=== PATIENT | female | born 1960 | race Caucasian/White ===

== ENCOUNTER 2020-01-13 09:19 | Emergency (ER) | payer SELFPAY ==
[2020-01-13] MEDS ORDERED: NA CHLORIDE 0.9% 1,000 ML ONE (09:57)
[2020-01-13 10:08] LABS: Absolute Lymphocytes (CBC) 0.6 K/uL (0.7-4.9); Basophils % 0.5 % (0-1.3); Hematocrit 33.8 % (36.0-45.0); Lymphocytes % 15.3 % (15.3-44.8); MPV 7.6 fL (7.6-11.3)
[2020-01-13 10:18] LABS: Protime INR 1.1
[2020-01-13 10:31] LABS: Albumin 2.7 g/dL (3.4-5.0); Bilirubin Direct 0.2 mg/dL (0-0.2); Bilirubin Total 0.5 mg/dL (0.2-1.0); Potassium 3.2 mmol/L (3.5-5.1); Protein, Total 6.8 g/dL (6.4-8.2)
--- NOTE | 2020-01-13 10:46 | RAD REPORT ---
EXAM DESCRIPTION: CT - Head Brain Wo Cont - 01/13/2020 10:36 am CLINICAL HISTORY: Confused;Declining state Headache, drowsiness COMPARISON: Chest Abdomen Pelvis W Cont dated 01/13/2020; HEPATOBILIARY DUCTAL IMAGING dated 11/09/2009 TECHNIQUE: All CT scans are performed using dose optimization technique as appropriate and may inclu de automated exposure control or mA/KV adjustment according to patient size. FINDINGS: No intracranial hemorrhage, hydrocephalus or extra-axial fluid collection.Subtle areas of diminished density are seen in the posterior subcortical white matter, nonspecific but likely chronic .No areas of brain edema or evidence of midline shift. The paranasal sinuses and mastoids are clear. The calvarium is intact. IMPRESSION: No acute intracranial abnormality. 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 Nonemergent contrast enhanced MRI brain followup assessment could be obtained if clinically tyrone cated for further assessment.
--- NOTE | 2020-01-13 10:58 | RAD REPORT ---
EXAM DESCRIPTION: CT - Chest Abdomen Pelvis W Cont - 01/13/2020 10:36 am CLINICAL HISTORY: Chest and abdomen pain. known metastatic lung cancer, worsening pain, abd and vomit COMPARISON: No comparisons TECHNIQUE: Approximately 100 mL nonionic IV contrast was administered to the patient. All CT scans are performed using dose optimization technique as appropriate and may include automated exposure control or mA/KV adjustment according to patient size. FINDINGS: Emphysematous changes are present throughout the lungs with spiculated right suprahilar so ft tissue mass measuring 27 x 16 mm. Matted soft tissue is seen extending into the right hilum and parks bcarinal space palpable with adenopathy. Mild matted adenopathy is also extends into the prevascular space.No pleural or pericardial effusion. Cholecystectomy. Mild fatty liver. No focal liver lesion is seen. Small hiatal hernia. The spleen is unremarkable. Mild pancreatic atrophy is evident. Bilateral adrenal masses are present on the right m easuring 21 mm and on the left measuring 14 mm, likely related to metastatic disease. Small poorly de fined lesion is seen anterior superior left kidney measuring 12 mm. No hydronephrosis. Moderate stool is present in the colon. Mild nonspecific thickening is seen involving the descending colon and proximal sigmoid colon. No bowel obstruction, free air, free fluid or abscess. The appendix is not identified as a discrete s tructure, however, no secondary findings of appendicitis are identified. No pathologic lymphadenopa thy in the abdomen or pelvis. Soft tissue destructive rib mass is seen affecting the left sixth rib measuring 37 x 24 mm medially d eep to the left breast implant. This is likely metastatic in etiology. IMPRESSION: Irregular right suprahilar malignancy is identified with evidence of matted adenopathy i n the mediastinum and right. Bilateral adrenal metastatic deposits suspected. Bony destructive mass, likely metastatic in etiology, affects the left sixth rib. 12 mm poorly defined lesion anterior superior left kidney may be metastatic or related to a second si te of neoplasia/RCC. Thickening of the descending colon and proximal sigmoid colon suggests possible colitis. Moderate ret ention of stool is seen proximal to this level.
[2020-01-13] MEDS ORDERED: FENTANYL CITR 100 MCG/2 ML ONE (11:16)
--- NOTE | 2020-01-13 11:50 | EKG ---
Test Date: 2020-01-13 Test Time: 09:32:02 Statement Distribution Clerk: TERRIE MEASUREMENT RESULTS: Intervals: Rate: 101 IN: 158 QRSD: 92 QT: 356 QTc: 461 [place]: P: 64 IN: 158 QRS: 9 T: 62 INTERPRETIVE STATEMENTS: Sinus tachycardia Possible Left atrial enlargement Borderline ECG No previous ECG available for comparison Electronically Signed On 01-13-20 11:50:02 CDT by Zack Noonan
[2020-01-13] MEDS ORDERED: ONDANSETRON 4 MG/2 ML VIAL ONE (12:23)
[2020-01-13] MEDS ORDERED: metroNIDAZOLE 500 MG TABLET ONE (12:23)
[2020-01-13] MEDS ORDERED: CIPROFLOXACIN HCL 500 MG TAB ONE (12:23)
--- NOTE | 2020-01-13 12:30 | EDPHYS ---
Physician Documentation [facility] Name: Maci Monae Age: 59 yrs Sex: Female : 1960 Arrival Date: 01/13/2020 Time: 09:22 Bed 6 Private MD: out of town, doctor ED Physician Nii Christensen HPI: 01/12 09:46 This 59 yrs old Female presents to ER via Wheelchair with complaints of Chest rn Pain, confusion, dehydration. 09:46 The patient or guardian reports chest pain that is located primarily in the left rn lateral anterior chest. Onset: chronic. The pain does not radiate. Associated signs and symptoms: Pertinent positives: abdominal pain, lightheadedness, nausea, vomiting. The chest pain is described as sharp, stabbing. Severity of pain: At its worst the pain was moderate in the emergency department the pain is unchanged. The patient has experienced similar episodes in the past, chronically. Reports known stage 4 lung cancer, with mets to breast/bone, is visiting from [facility], daughter brought her in because of worsening pain despite morphine, 3 days of confusion, and atleast 1 week of decreased appetite with vomiting/diarrhea only when attempting PO intake. + increase weight loss. . Historical: - Allergies: 09:39 Codeine; hb - PMHx: 09:39 Lung CA - Stage 4; hb - Immunization history:: Adult Immunizations up to date. - Social history:: Smoking status: Patient denies any tobacco usage or history of. - Family history:: not pertinent. - Hospitalizations: : No recent hospitalization is reported. ROS: 09:46 Constitutional: Negative for fever, chills, and weight loss, Eyes: Negative for injury, rn pain, redness, and discharge, Cardiovascular: Negative for palpitations, and edema, Respiratory: + sob and pleuritic chest pain Abdomen/GI: Negative for constipation, : + dark urine MS/Extremity: Negative for injury and deformity, Skin: Negative for injury, rash, and discoloration, Neuro: Negative for headache, numbness, tingling, and seizure. Exam: 09:45 ECG was reviewed by the Attending Physician. rn 09:46 Constitutional: Thin, cachectic female, no acute distress Head/Face: Normocephalic, rn atraumatic. ENT: dry MM Cardiovascular: Tachycardic, regular Respiratory: Diminished bilateral bases, no retractions. Speaking full sentences. Abdomen/GI: soft, + mild left sided abd tenderness, no masses Skin: Warm, dry MS/ Extremity: Pulses equal, no cyanosis. Neuro: Awake and alert, GCS 15, oriented to person, place. Cranial nerves II-XII grossly intact. Motor strength 4/5 in all extremities. Sensory grossly intact. Cerebellar exam normal. Vital Signs: 09:32 BP 98 / 76; Pulse 103; Resp 16; Temp 97.9; Pulse Ox 97% on R/A; Weight 55.79 kg; Height hb 5 ft. 5 in. (165.10 cm); Pain 10/10; 09:45 BP 115 / 72; Pulse 92; Resp 18 S; Pulse Ox 100% on R/A; Pain 10/10; iw 10:03 BP 124 / 75; Pulse 88; Resp 18 S; Pulse Ox 100% on R/A; iw 12:29 BP 122 / 79; Pulse 84; Resp 16; Pulse Ox 99% on R/A; iw 09:32 Body Mass Index 20.47 (55.79 kg, 165.10 cm) hb MDM: 09:24 Patient medically screened. rn 12:26 Differential diagnosis: worsening cancer, dehydration, UTI, colitis, viral syndrome. rn Data reviewed: vital signs, nurses notes, lab test result(s), radiologic studies, CT scan, and as a result, I will discharge patient. Counseling: I had a detailed discussion with the patient and/or guardian regarding: the historical points, exam findings, and any diagnostic results supporting the discharge/admit diagnosis, lab results, radiology results, the need for outpatient follow up, to return to the emergency department if symptoms worsen or persist or if there are any questions or concerns that arise at home. Response to treatment: the patient's symptoms have markedly improved after treatment, and as a result, I will discharge patient. Special discussion: I discussed with the patient/guardian in detail that at this point there is no indication for admission to the hospital. It is understood, however, that if the symptoms persist or worsen the patient needs to return immediately for re-evaluation. ED course: No acute findings in CT head/chest/abdomen/pelvis. Is leaving back to [facility] tomorrow and will take results to her doctor, is scheduled to get PET scan. Improved after medication and fluids, nothing to require emergent admission. Patient would like to go home. Explained all results and concerns of worsening cancer/new mets. . 01/12 09:43 Order name: CBC with Diff; Complete Time: 10:20 rn 01/12 09:43 Order name: Basic Metabolic Panel; Complete Time: 11:23 rn 01/12 09:43 Order name: Protime (+inr); Complete Time: 11:23 rn 01/12 09:43 Order name: Ptt, Activated; Complete Time: 11: rn 01/12 09:43 Order name: Hepatic Function; Complete Time: 11:23 rn 01/12 09:43 Order name: Lipase; Complete Time: 11: rn 01/12 09:41 Order name: CT Head Brain wo Cont; Complete Time: : rn 01/12 09:41 Order name: CT Chest, Abdomen, Pelvis - W/Contrast; Complete Time: 11:23 rn 01/12 10:31 Order name: CREATININE WHOLE BLOOD; Complete Time: 11:23 EDMS 01/12 09:43 Order name: IV Start; Complete Time: 10:07 rn 01/12 09:43 Order name: Labs collected and sent; Complete Time: 10:02 rn 01/12 11:12 Order name: EKG Electrocardiogram EDMS EC:45 Rate is 101 beats/min. Rhythm is regular. QRS [place] is Normal. DE interval is normal. rn QRS interval is normal. QT interval is normal. No Q waves. T waves are Normal. No ST changes noted. Clinical impression: Sinus tachycardia. Interpreted by me. Reviewed by me. Administered Medications: 10:02 Drug: NS 0.9% 1000 ml Route: IV; Rate: 1000 ml; Site: left antecubital; iw 11:10 Drug: fentaNYL (PF) 50 mcg Route: IVP; Site: left antecubital; iw 12:26 Drug: Cipro 500 mg Route: PO; iw 12:26 Drug: Flagyl 500 mg Route: PO; iw 12:26 Drug: Zofran (Ondansetron) 4 mg Route: IVP; Site: left antecubital; iw Disposition: 01/13/20 12:29 Discharged to Home. Impression: Dehydration, Colitis. - Condition is Stable. - Discharge Instructions: Dehydration, Adult, Colitis. - Prescriptions for Zofran ODT 4 mg Oral tablet,disintegrating - place 1 tablet by TRANSLINGUAL route every 8 hours As needed; 20 tablet. Cipro 500 mg Oral Tablet - take 1 tablet by ORAL route every 12 hours for 10 days; 20 tablet. Flagyl 500 mg Oral Tablet - take 1 tablet by ORAL route every 8 hours for 10 days; 30 tablet. - Medication Reconciliation Form, Thank You Letter, Antibiotic Education, Prescription Opioid Use form. - Follow up: Private Physician; When: As needed; Reason: Recheck today's complaints, Re-evaluation by your physician. - Problem is new. - Symptoms have improved. Signatures: Dispatcher [employer] EDMS Jocelin Talavera RN RN iw Nii Christensen MD MD rn Baxter, Heather, RN RN Corrections: (The following items were deleted from the chart) 13:01 12:29 01/13/2020 12:29 Discharged to Home. Impression: Dehydration; Colitis. Condition iw is Stable. Forms are Medication Reconciliation Form, Thank You Letter, Antibiotic Education, Prescription Opioid Use. Follow up: Private Physician; When: As needed; Reason: Recheck today's complaints, Re-evaluation by your physician. Problem is new. Symptoms have improved. rn
--- NOTE | 2020-01-13 12:30 | ER ---
Nurse's Notes [facility] Name: Maci Monae Age: 59 yrs Sex: Female : 1960 Arrival Date: 01/13/2020 Time: 09:22 Bed 6 Private MD: out of town, doctor Diagnosis: Dehydration;Colitis Presentation: 01/12 09:32 Chief complaint: Here visiting family from [place], has stage 4 lung CA, hb daughter reports she has only only eaten twice in the last 2 weeks, not tolerating fluids, brown urine x 2 days, takes morphine 12 mg q 6hrs but pain has become unbearable. Coronavirus screen: Proceed with normal triage. Ebola Screen: No symptoms or risks identified at this time. Initial Sepsis Screen: Does the patient meet any 2 criteria? HR > 90 bpm. Does the patient have a suspected source of infection? No. Patient's initial sepsis screen is negative. Risk Assessment: Do you want to hurt yourself or someone else? Patient reports no desire to harm self or others. Onset of symptoms was January 13, 2020. 09:32 Method Of Arrival: Wheelchair 09:32 Acuity: [place] 3 hb Historical: - Allergies: 09:39 Codeine; hb - PMHx: 09:39 Lung CA - Stage 4; hb - Immunization history:: Adult Immunizations up to date. - Social history:: Smoking status: Patient denies any tobacco usage or history of. - Family history:: not pertinent. - Hospitalizations: : No recent hospitalization is reported. Screenin:04 Abuse screen: Denies threats or abuse. Denies injuries from another. Nutritional iw screening: No deficits noted. Tuberculosis screening: No symptoms or risk factors identified. Fall Risk IV access (20 points). Assessment: 10:05 General: Appears uncomfortable, ill, Behavior is calm, cooperative. Pain: Complains of iw pain in chest and left lateral anterior chest Pain does not radiate. 10:05 Pain: Pain began chronic. Neuro: Level of Consciousness is awake, alert, obeys iw commands, Oriented to person, place, time, situation, Moves all extremities. Full function. Cardiovascular: Reports chest pain, Capillary refill is > 3 seconds in bilateral fingers. Respiratory: Respiratory effort is even, unlabored, Respiratory pattern is regular, symmetrical. Derm: Skin is fragile, is thin, Skin is pale. Musculoskeletal: Range of motion: intact in all extremities. 12:27 Reassessment: Patient appears in no apparent distress at this time. pt requesting more iw pain medication before being d/c, fentanyl did not relieve pain. Vital Signs: 09:32 BP 98 / 76; Pulse 103; Resp 16; Temp 97.9; Pulse Ox 97% on R/A; Weight 55.79 kg; Height hb 5 ft. 5 in. (165.10 cm); Pain 10/10; 09:45 BP 115 / 72; Pulse 92; Resp 18 S; Pulse Ox 100% on R/A; Pain 10/10; iw 10:03 BP 124 / 75; Pulse 88; Resp 18 S; Pulse Ox 100% on R/A; iw 12:29 BP 122 / 79; Pulse 84; Resp 16; Pulse Ox 99% on R/A; iw 09:32 Body Mass Index 20.47 (55.79 kg, 165.10 cm) hb ED Course: 09:22 Patient arrived in ED. mr 09:22 out of town, doctor is Private Physician. mr 09:24 Nii Christensen MD is Attending Physician. rn 09:26 Jocelin Talavera, ANY is Primary Nurse. iw 09:38 Triage completed. hb 09:39 Arm band placed on. hb 10:00 Initial lab(s) drawn, by me, sent to lab. Inserted saline lock: 22 gauge in left iw antecubital area, using aseptic technique. Patient maintains SpO2 saturation greater than 95% on room air. 10:15 Patient has correct armband on for positive identification. hospital cook on. Pulse iw ox on. NIBP on. 10:37 CT Head Brain wo Cont In Process Unspecified. EDMS 10:37 CT Chest, Abdomen, Pelvis - W/Contrast In Process Unspecified. EDMS 13:25 No provider procedures requiring assistance completed. Patient did not have IV access iw during this emergency room visit. Administered Medications: 10:02 Drug: NS 0.9% 1000 ml Route: IV; Rate: 1000 ml; Site: left antecubital; iw 11:10 Drug: fentaNYL (PF) 50 mcg Route: IVP; Site: left antecubital; iw 12:26 Drug: Cipro 500 mg Route: PO; iw 12:26 Drug: Flagyl 500 mg Route: PO; iw 12:26 Drug: Zofran (Ondansetron) 4 mg Route: IVP; Site: left antecubital; iw Outcome: 12:29 Discharge ordered by . rn 13:00 Discharged to home via wheelchair, with family. iw 13:00 Condition: good 13:00 Discharge instructions given to patient, family, Instructed on discharge instructions, follow up and referral plans. medication usage, Demonstrated understanding of instructions, follow-up care, medications, Prescriptions given X 3. 13:01 Patient left the ED. iw Signatures: Dispatcher [employer] JONATHANAR JaxsonNatalie Irene, RN RN iw Nii Christensen MD MD rn Baxter, Heather, RN RN Corrections: (The following items were deleted from the chart) 13:30 10:05 Pain: Complains of pain in chest and left lateral anterior chest iw iw
[2020-01-13] MEDS ORDERED: HYDROMORPHONE HCL 0.5 MG/0.5 ML INJ ONE (12:40)
[2020-01-13 13:07] VITALS: TEMP 97.9
[2020-01-13 13:11] VITALS: BP 122/79; O2SAT 99
== END 2020-01-13 13:01 | disposition home or self-care (01) ==
LOC: ER 09:19
DX: E86.0 Dehydration (principal); K52.9 Noninfective gastroenteritis and colitis, unspecified; Z88.5 Allergy status to narcotic agent; Z85.118 Personal history of other malignant neoplasm of bronchus and lung
CPT/HCPCS: 36415; 70450; 71260; 74177; 80048; 80076; 82565; 83690; 85025; 85610; 85730; 93005; 96374; 96375; 99285; J1170; J2405; J3010; J7030; Q9967